=== PATIENT | female | born 1965 | race Two or more races ===

== ENCOUNTER 2020-10-29 18:57 | Emergency (ER) | payer OTHER ==
[~2020-10-29] VITALS: Ht 167.6 cm; Wt 100.0 kg
[2020-10-29] MEDS ORDERED: TELM1TAB31 PO (19:05)
[2020-10-29] MEDS ORDERED: ACETAMINOPHEN 500 MG TABLET PO ONE (19:45)
[2020-10-29 20:17] VITALS: BP 133/83
== END 2020-10-29 20:27 | disposition home or self-care (01) ==
LOC: EMS 18:59
DX: S00.83XA Contusion of other part of head, initial encounter (principal); X58.XXXA Exposure to other specified factors, initial encounter; Y93.89 Activity, other specified; Y92.89 Other specified places as the place of occurrence of the external cause; Y99.8 Other external cause status
CPT/HCPCS: 99282; Z7502; Z7610